=== PATIENT | male | born 2000 | race Caucasian/White ===

== ENCOUNTER 2025-05-09 00:24 | Emergency (ER) | payer SELFPAY ==
[~2025-05-09] VITALS: Ht 175.3 cm; Wt 77.0 kg
[2025-05-09 00:32] VITALS: TEMP 36.9; O2SAT 100
[2025-05-09] MEDS: HYDROCODONE/ACETAMINOPHEN 5/325MG TABLET PO ONE (04:54)
[2025-05-09] MEDS ORDERED: IBUP-2029 MT (05:13)
[2025-05-09] MEDS ORDERED: HYDR-4001 MT (05:13)
[2025-05-09 06:49] VITALS: BP 144/69; PULSE 68; RESP 18; O2SAT 99
== END 2025-05-09 06:54 | disposition home or self-care (01) ==
LOC: ER 00:24
DX: S92.322A Displaced fracture of second metatarsal bone, left foot, initial encounter for closed fracture (principal); X58.XXXA Exposure to other specified factors, initial encounter; Y93.89 Activity, other specified; Y92.89 Other specified places as the place of occurrence of the external cause; Y99.8 Other external cause status
CPT/HCPCS: 29515; 73630; 99283